=== PATIENT | male | born 1975 | race Caucasian/White ===

== ENCOUNTER 2016-09-14 17:42 | Emergency (ER) | payer BC ==
[~2016-09-14] VITALS: Ht 193 cm; Wt 158.4 kg
[~2016-09-14 17:42] MED LIST: ERYTHROMYC1 APPLICAT BOTH EYES; KEFLEX500 MG PO; NAPROSYN500 MG PO; ULTRAM50 MG PO
[2016-09-14] MEDS ORDERED: PERCOCET 5/31 TABLET PO (19:45)
[2016-09-14] MEDS ORDERED: FLEXERIL10 MG PO (19:45)
[2016-09-14] MEDS ORDERED: MOBIC7.5 MG PO (19:45)
[2016-09-14 20:20] VITALS: BP 149/96
== END 2016-09-14 20:21 | disposition home or self-care (01) ==
LOC: EME 17:42
DX: S20.212A Contusion of left front wall of thorax, initial encounter (principal); W18.09XA Striking against other object with subsequent fall, initial encounter; Y92.007 Garden or yard of unspecified non-institutional (private) residence as the place of occurrence of the external cause; Y93.H9 Activity, other involving exterior property and land maintenance, building and construction; F17.200 Nicotine dependence, unspecified, uncomplicated
CPT/HCPCS: 71020; 99281; 99284